=== PATIENT | male | born 1945 | race Caucasian/White ===

== ENCOUNTER 2020-04-16 08:07 | Day surgery (SDC) | payer MEDICARE, BC ==
[2020-04-10 15:36] LABS: BASOPHILS % (AUTO) 0.2 % (0-1); EOSINOPHILS # (AUTO) 0.2 X10'3 (0-0.9); EOSINOPHILS % (AUTO) 3.5 % (0-6); LYMPHOCYTES # (AUTO) 1.2 X10'3 (1.1-4.8); MEAN CORPUSCULAR HGB CONC 32.8 g/dL (33.0-36.5); MEAN CORPUSCULAR VOLUME 88.2 FL (78-98); MEAN PLATELET VOLUME 8.8 FL (7.4-10.4); MONOCYTES # (AUTO) 0.7 X10'3 (0-0.9); NEUTROPHILS # (AUTO) 4.5 X10'3 (1.8-7.7); NEUTROPHILS % (AUTO) 68.3 % (42-75); PRE OP HEMATOCRIT 44.3 % (42.0-52.0); PRE OP HEMOGLOBIN 14.6 g/dL (14.0-17.9); PRE OP PLATELET COUNT 264 X10'3 (140-440); RED BLOOD COUNT 5.03 X10'6 (4.70-6.10); RED CELL DISTRIBUTION WIDTH 13.5 % (11.5-14.5)
[2020-04-10 15:48] LABS: ALBUMIN 4.3 G/DL (3.4-5.0); ALBUMIN/GLOBULIN RATIO 1.3 (1.1-1.5); ALKALINE PHOSPHATASE 49 IU/L (46-116); BLOOD UREA NITROGEN 24 MG/DL (7-18); BUN/CREATININE RATIO 31.2 (5.4-32.0); CALCIUM 9.1 MG/DL (8.5-10.1); CHLORIDE 104 MMOL/L (99-107); CREATININE 0.77 MG/DL (0.60-1.10); PRE OP ALT 25 U/L (30-65); PRE OP ANION GAP 7 (8-16); PRE OP AST 15 U/L (10-37); PRE OP BILIRUB, TOTAL 0.5 MG/DL (0.0-1.0); PRE OP GLUCOSE 97 MG/DL (70-104); PRE OP POTASSIUM 3.8 MMOL/L (3.4-5.1); PRE OP SODIUM 140 MMOL/L (135-145); TOTAL CARBON DIOXIDE 29.2 MMOL/L (24-32); TOTAL PROTEIN 7.5 G/DL (6.4-8.2); eGFR > 90 ML/MIN
[~2020-04-16] VITALS: Ht 172.7 cm; Wt 72.6 kg
[2020-04-16] VITALS (23 sets, daily range): BP systolic 127–156; BP diastolic 63–85
[~2020-04-16 08:07] MED LIST: BUPIVAcaine/PF 2.5 mg/ml (0.25%) 30ml vial ONE; LIDOcaine 1% 30ml preserv. free vial ONE; MULT-1085 PO; ceFAZolin 2gm in dextrose, iso 50 ML IV ONE; famotidine 20mg tablet PO ONE; ringers solution, lacted 1,000 ML IV SCH
[2020-04-16] MEDS ORDERED: ringers solution, lacted 1,000 ML IV SCH (09:04)
[2020-04-16] MEDS ORDERED: meperidine/PF 25mg/ml syringe IV PRN ×3 (09:05)
[2020-04-16] MEDS ORDERED: labetalol 20mg/4ml (5mg/ml) syringe IV PRN (09:05)
[2020-04-16] MEDS ORDERED: hydrALAZINE 20mg/ml inj. IV PRN (09:05)
[2020-04-16] MEDS ORDERED: proCHLORperazine 10 MG/2 ml inj IV PRN (09:05)
[2020-04-16] MEDS ORDERED: acetaminophen 1,000mg/100ml IV 100 ML IV PRN (09:05)
[2020-04-16] MEDS ORDERED: morphine 4 MG/ML inj SYRINge IV PRN (09:05)
[2020-04-16] MEDS ORDERED: ondansetron/PF 4mg/2ml inj IV PRN (09:05)
[2020-04-16] MEDS ORDERED: morphine 2 MG/ML inj. syringe IV PRN (09:05)
[2020-04-16] MEDS ORDERED: midazolam 2 mg/2 ml injection ONE (09:18)
[2020-04-16] MEDS ORDERED: fentaNYL /PF 50mcg/ml 5ml ampule ONE (09:33)
[2020-04-16] MEDS ORDERED: LIDOcaine 2% 5ml jelly ONE (09:33)
[2020-04-16] MEDS ORDERED: LIDOcaine 2% (20mg/ml) 5ml vial ONE (09:37)
[2020-04-16] MEDS ORDERED: rocuronium 10mg/ml inj IV ONE (09:37)
[2020-04-16] MEDS ORDERED: propofol inj 20 ML IV ONE (09:37)
[2020-04-16] MEDS ORDERED: dexamethasone sod phosphate 4mg/ml inj. ONE (09:37)
[2020-04-16] MEDS ORDERED: ondansetron/PF 4mg/2ml inj ONE (09:38)
[2020-04-16] MEDS ORDERED: neostigmine methylsulfate 1 MG/ML 10ml vial ONE (11:02)
[2020-04-16] MEDS ORDERED: glycopyrrolate 0.2mg/ml inj ONE (11:02)
[2020-04-16] MEDS ORDERED: oxyCODONE/APAP 5-325mg tablet PO PRN (11:35)
--- NOTE | 2020-04-16 11:35 | NUR ---
RECEIVED FROM OR VIA [facility] ACCOMPANIED BY ANESTHESIOLOGIST DR AUGUSTIN, REPORT GIVEN. PT AWAKE AND ALERT AND DENIES PAIN AT THIS TIME. 20 GAUGE PIV L HAND PATENT AND RUNNING LR AT 100 ML/HR. LG BANDAID X3 TO ABD CDI. ABD SOFT, VSS, SKIN PINK AND WARM, BRISK CAP REFILL, COOLEY, RESTING COMFORTABLY.
--- NOTE | 2020-04-16 15:05 | NUR ---
PT AWAKE AND ALERT AND STATES PAIN LEVEL OF 2 AT THIS TIME. PT TOLERATING FLUIDS WELL. ABLE TO AMBULATE. UNABLE TO VOID AFTER SEVERAL ATTEMPTS. AT 1330 BLADDER SCAN PERFORMED SHOWING 175 ML RETAINED URINE. AT 1430 BLADDER SCAN PERFORMED FOR 195 ML RETAINED URINE. AFTER DISCUSSION WITH DR WALSH AND PT PT OPTED TO HAVE A F/C AND GO HOME. 16 FR F/C STARTED WITH NO RESISTANCE, CLEAR YELLOW RETURN. PT EDUCATED ON CATH CARE AND HANDOUT GIVEN, DISCHARGE INSTRUCTIONS GIVEN AND PT VERBALIZED UNDERSTANDING. INSTRUCTIONS REINFORCED TO .20 GAUGE PIV L HAND DCD CATH TIP INTACT. LG BANDAID X3 TO ABD CDI. ABD SOFT, VSS, SKIN PINK AND WARM, BRISK CAP REFILL, COOLEY. TRANSPORTED VIA WHEELCHAIR TO SPOUSE IN PRIVATE VEHICLE TO HOME.
== END 2020-04-16 15:05 | disposition home or self-care (01) ==
LOC: PAS 08:07
PROVIDERS: ATTEND Surgery
DX: K42.0 Umbilical hernia with obstruction, without gangrene (principal); K40.90 Unilateral inguinal hernia, without obstruction or gangrene, not specified as recurrent; Z79.899 Other long term (current) drug therapy; Z98.890 Other specified postprocedural states; Z88.5 Allergy status to narcotic agent; Z87.891 Personal history of nicotine dependence; Z87.01 Personal history of pneumonia (recurrent); Z86.14 Personal history of Methicillin resistant Staphylococcus aureus infection; Z20.828 Contact with and (suspected) exposure to other viral communicable diseases
CPT/HCPCS: 36415; 49587; 49650; 80053; 82948; 85025; 87635; C1781; J1100; J2001; J2250; J2405; J2704; J2710; J3010; J3490; J7120; A4215; A4338; A4618